=== PATIENT | female | born 1990 | race American Indian/Alaskan Native ===

== ENCOUNTER 2019-01-22 13:23 | Emergency (ER) | payer OTHER ==
[2019-01-22 13:39] VITALS: BP 125/71
--- NOTE | 2019-01-22 14:04 | Event Note ---
ED Screening Note Date of service: 01/22/19 Time: 13:37 ED Screening Note: 28 y/o female comes in for lower abd pain times 2 day. Is followed by [facility] This initial assessment/diagnostic orders/clinical plan/treatment(s) is/are subject to change based on patients health status, clinical progression and re- assessment by fellow clinical providers in the ED. Further treatment and workup at subsequent clinical providers discretion. Patient/guardian urged not to elope from the ED as their condition may be serious if not clinically assessed and managed. Initial orders include:
[2019-01-22 14:16] LABS: Bilirubin,Urine NEG (Negative); Blood,Urine NEG (Negative); Color,Urine Yellow (Yellow); Mucus,Urine 3+ /HPF; Protein,Urine <15 mg/dL mg/dL (Negative); Urobilinogen,Urine < 2.0 mg/dL (<2.0)
--- NOTE | 2019-01-22 16:03 | Emergency Department Report ---
<LANDY HORNER - Last Filed: 01/22/19 18:36> ED Female HPI - General Chief complaint: Abdominal Pain Stated complaint: 19WKS /STOMACH PAIN Time Seen by Provider: 01/22/19 13:37 Source: patient Mode of arrival: Ambulatory Limitations: No Limitations - History of Present Illness Initial comments: This is a 28-year-old female approximately 19 weeks who presents to the ED complaining of mild lower pelvic cramping that started 2 days ago. Patient states she is followed by [facility] [employer]. Patient denies fevers/chills/nausea vomiting/vaginal discharge, vaginal bleeding or dysuria MD Complaint: pelvic pain - Related Data Previous Rx's Medication Instructions Recorded Last Taken Type Nitrofurantoin Gosper/M-Cryst 100 mg PO Q12HR #10 capsule 01/22/19 Unknown Rx [Macrobid CAP] ED Review of Systems Comment: All other systems reviewed and negative ED Past Medical Hx - Past Medical History Previous Medical History?: Yes Hx Asthma: Yes - Surgical History Past Surgical History?: Yes Additional Surgical History: Hernia repair - Social History Smoking Status: Never Smoker Substance Use Type: None - Medications Home Medications: Home Medications Medication Instructions Recorded Confirmed Last Taken Type Nitrofurantoin Gosper/M-Cryst 100 mg PO Q12HR #10 capsule 01/22/19 Unknown Rx [Macrobid CAP] ED Physical Exam - General Limitations: No Limitations General appearance: alert, in no apparent distress - Head Head exam: Present: atraumatic, normocephalic - Eye Eye exam: Present: normal appearance - ENT ENT exam: Present: mucous membranes moist - Neck Neck exam: Present: normal inspection - Respiratory Respiratory exam: Present: normal lung sounds bilaterally. Absent: respiratory distress - Cardiovascular Cardiovascular Exam: Present: regular rate, normal rhythm. Absent: systolic murmur, diastolic murmur, rubs, gallop - GI/Abdominal GI/Abdominal exam: Present: soft, normal bowel sounds - Extremities Exam Extremities exam: Present: normal inspection - Back Exam Back exam: Present: normal inspection - Neurological Exam Neurological exam: Present: alert, oriented X3 - Psychiatric Psychiatric exam: Present: normal affect, normal mood - Skin Skin exam: Present: warm, dry, intact, normal color. Absent: rash ED Medical Decision Making - Medical Decision Making 28-year-old female presents with ligamentous pain in Urinalysis is shows leukocyte esterase and some WBCs. We will go ahead and treat patient because she is . She'll be sent home with Macrobid for 5 days heart tones is 148. Patient was nontender to palpation on exam. Discussed the patient follow up with primary [employer] as scheduled. Patient states she has an appointment for ultrasound on Thursday 4 days Vital signs normal patient is in no acute distress. She is in no distress at all. She states of the sudden instructions and will follow-up. ED Disposition Disposition: DC-01 TO HOME OR SELFCARE Is pt being admited?: No Does the pt Need Aspirin: No Condition: Stable Instructions: Urinary Tract Infection in Women (ED), Abdominal Pain (ED) Additional Instructions: Make sure to follow up with the primary care physician as discussed. Take all your medications as you've been prescribed. If you have any worsening symptoms or develop new symptoms please return to ED immediately. Prescriptions: Nitrofurantoin Gosper/M-Cryst [Macrobid CAP] 100 mg PO Q12HR #10 capsule Referrals: [facility] [Other] - 3-5 Days Forms: Accompanied Note, Work/School Release Form(ED) Time of Disposition: 16:03 <TULIO BHARDWAJ P - Last Filed: 01/23/19 17:38> ED Review of Systems ROS: Stated complaint: 19WKS /STOMACH PAIN Other details as noted in HPI ED Course Vital Signs 01/22/19 13:37 Temperature 98.0 F Pulse Rate 68 Respiratory 16 Rate Blood Pressure 125/71 O2 Sat by Pulse 99 Oximetry Critical care attestation.: If time is entered above; I have spent that time in minutes in the direct care of this critically ill patient, excluding procedure time.
== END 2019-01-22 17:00 | disposition home or self-care (01) ==
LOC: ED 13:23
DX: O26.892 Other specified pregnancy related conditions, second trimester (principal); R10.2 Pelvic and perineal pain; J45.909 Unspecified asthma, uncomplicated; Z3A.19 19 weeks gestation of pregnancy
CPT/HCPCS: 81001; 87086